=== PATIENT | male | born 2000 | race Caucasian/White ===

== ENCOUNTER 2024-11-12 20:22 | Emergency (ER) | payer OTHER ==
[~2024-11-12] VITALS: Ht 177.8 cm; Wt 77.1 kg
[2024-11-12] MEDS ORDERED: IBUPROFEN 400 MG TABLET ONE (21:58)
[2024-11-12] MEDS: IBUPROFEN 400 MG TABLET PO ONE (22:04)
[2024-11-12 23:30] VITALS: BP 120/60; TEMP 98; O2SAT 99
== END 2024-11-12 23:31 | disposition home or self-care (01) ==
LOC: ER 20:28
DX: S93.491A Sprain of other ligament of right ankle, initial encounter (principal); S80.211A Abrasion, right knee, initial encounter; V00.131A Fall from skateboard, initial encounter; Z60.2 Problems related to living alone; Y93.51 Activity, roller skating (inline) and skateboarding; Y92.89 Other specified places as the place of occurrence of the external cause; Y99.8 Other external cause status
CPT/HCPCS: 73610-TC; 73630-TC